=== PATIENT | female | born 1990 | race Caucasian/White ===

== ENCOUNTER 2017-08-20 00:04 | Observation (INO) ==
[2017-08-20] MEDS ORDERED: Naloxone 0.4 MG/ML INJ IVP PRN (05:17)
--- NOTE | 2017-08-20 05:29 | Internal Med History&Physical ---
Date of Encounter: 08/20/17 Time of Encounter: 02:25 Internal Medicine - H&P: HPI Chief complaint: GI bleed Admitted From: Home Plans for Post Hospital Care: Home History of present illness: Ms. Calderon is a 27 year old female Patient was seen by her primary care physician earlier today and had blood work done. Later they called her at her home and told her to go to the emergency room because she had low hemoglobin. When she presented to the emergency room her blood work showed that her hemoglobin was 6.3 hematocrit was 24.7. She had been feeling weak lately and dizzy particularly with standing. She has intense cravings for ice, and enjoys chewing on it. She denies noticing blood in her stool or urine, she has a history of heavy periods but no other signs of bleeding. Further workup showed an iron saturation level of 2, IBC of 528, iron level of 13, ferritin level of 2. Her reticulocyte count was 1.76. End of stool occult blood test was positive. She was given 1 unit of PRBCs, and Protonix. She was transferred to [facility] for further management. Discussion with GI physician was had, and she will be scoped in the morning. She denies nausea, vomiting, fever, diarrhea, constipation, chest pain and abdominal pain. She denies falls and loss of consciousness. Past Med Surg Social Fam HX - Past Medical History Medical history: no medical history Psychiatric history: no psych history - Past Surgical History Surgical History: cholecystectomy, other Additional surgical history: lap surgery for endometriosis, wisdom teeth removed - Social History Smoking Status: Never smoker Alcohol use: none Drug use: none - Family History Mother Living Status: Still Living Hx Family Endocrine Disorder: Yes (graves disease) Internal Medicine - H&P: Meds 3 Allergy/AdvReac Type Severity Reaction Status Date / Time No Known Allergies Allergy Verified 03/15/15 04:30 All Systems PM: A 10-system review of systems was performed and is negative for pertinent findings except as documented above in the HPI. - Constitutional Vitals: Temp Pulse Resp BP Pulse Ox 98.5 F 80 18 121/84 100 08/20/17 03:01 08/20/17 03:01 08/20/17 03:01 08/20/17 03:01 08/20/17 03:01 General appearance: Present: A&O X 3, pleasant, no acute distress - Eye Eye exam: Present: EOMI, normal appearance, conjuntiva pink. Absent: conjunctival injection - Neck Neck exam general surgery: Absent: tenderness - Respiratory Respiratory exam: Present: CTAB. Absent: chest wall tenderness, rales, respiratory distress, wheezes - Cardiovascular Cardiovascular exam: Present: RRR. Absent: diastolic murmur, systolic murmur - GI/Abdominal GI/Abdominal exam: Present: normal bowel sounds. Absent: guarding, hyperactive bowel sounds, hypoactive bowel sounds, tenderness - Extremities Exam Extremities exam: Present: full ROM, warm, radial pulses palpable and symmetrical. Absent: tenderness - Neurological Exam Neurological exam: Present: oriented X3, no focal deficits. Absent: facial droop, speech deficit - Skin Skin exam: Present: dry, normal color, warm - Assessment and plan (1) Iron deficiency anemia Current Visit: Yes Status: Acute Assessment and plan: Patient has what appears to be iron deficiency anemia as her serum iron level is very low at 13, iron binding capacity is elevated at 528, her serum ferritin is low at 2, and her hemoglobin is 6.3 on her CBC. Her percent saturation is also low at 2. She was also found to have a GI bleed via positive occult blood test. Consult GI for likely scope in the morning Patient transfused 1 unit PRBCs, repeat H&H and follow levels Protonix started Start iron supplementation after scope. Qualifiers: Qualified Code(s): D50.9 - Iron deficiency anemia, unspecified (2) Occult GI bleeding Current Visit: Yes Status: Acute Assessment and plan: Positive at [facility] ER. See plan above (3) Weakness Current Visit: Yes Status: Acute Assessment and plan: Secondary to iron deficiency anemia See plan above (4) Pica Current Visit: Yes Status: Acute Assessment and plan: Patient has intense cravings for ice, likes to chew on it. This is most likely a symptom of her iron deficiency See plan above. - Time Spent With Patient Total time spent is greater than 50% in coordination of care (as documented) at patient's floor/unit and/or counseling patient: Greater than 35 minutes
[2017-08-20] MEDS: Pantoprazole 40 MG VIAL IVP SCH ×2 (06:00→18:24)
[2017-08-20 06:20] LABS: Hematocrit 25.5 % (35.3-44.9); Hemoglobin 6.9 g/dL (11.5-15.4); Mean Corpuscular HGB Conc 27.1 g/dL (31.6-35.5); Mean Corpuscular Hemoglobin 15.7 pg (28.0-33.3); Mean Platelet Volume 9.6 fL (9.4-12.4); Platelet Count 326 K/mcL (140-400); Red Cell Distribution Width 24.7 % (11.5-14.5)
[2017-08-20 06:34] LABS: BUN/Creatinine Ratio 16 (6-26); Blood Urea Nitrogen 9 mg/dL (6-20); Calcium 8.8 mg/dL (8.6-10.3); Carbon Dioxide 22 mEq/L (23-29); Chloride 108 mEq/L (98-107); Glucose 97 mg/dL (70-105); Osmolality,Calculated 289 (280-300); Potassium 3.5 mEq/L (3.5-5.1); Sodium 140 mEq/L (136-145); eGFR For African Americans > 60 (> 60); eGFR For Non-African Americans > 60 (> 60)
[2017-08-20] MEDS ORDERED: 0.9 % Sodium Chloride 250 ML ONE (09:11)
--- NOTE | 2017-08-20 10:49 | Gastroenterology Consult Note ---
Date of Encounter: 08/20/17 Time of Encounter: 10:05 - Assessment and plan (1) Iron deficiency anemia Current Visit: Yes Status: Acute Assessment and plan: Hgb 6.9 with MCV 58. At [facility] iron 13, ferritin 2. Continue to monitor CBC and transfuse PRBC as needed. Plan for EGD today to r/o esophagitis, gastritis, duodenitis, PUD, MW tear, or AVM. Keep patient NPO. If EGD negative, consider colonoscopy, possibly as outpatient. Qualifiers: Iron deficiency anemia type: unspecified iron deficiency Qualified Code(s) : D50.9 - Iron deficiency anemia, unspecified (2) Occult GI bleeding Current Visit: Yes Status: Acute Assessment and plan: FOBT was positive at OSH. Plan for EGD today. Keep NPO. (3) Pica Current Visit: Yes Status: Acute Assessment and plan: Secondary to iron deficiency. - Time Spent With Patient Total time spent is greater than 50% in coordination of care (as documented) at patient's floor/unit and/or counseling patient: GI History of Present Illness - Data of Consult Patient: new to practice Consult date: 08/20/17 Requesting Physician: Maris Townsend - Consult Narrative Reason for consult: ANDREW, FOBT + History of present illness: Ms. Calderon is a 27 year old female who was admitted with anemia. She had blood work checked by her PCP yesterday and was told to go to the ED becausea of a low Hgb. When she presented to the ED at [facility], her blood work showed that her Hgb 6.3. She had been feeling weak lately and dizzy particularly with standing. She has intense cravings for ice, and enjoys chewing on it. She denies melena or hematochezia. She has a history of heavy periods but no other signs of bleeding. Further workup showed an iron saturation level of 2, IBC of 528, iron level of 13, ferritin level of 2. Fecal occult blood test was positive. She was given one unit PRBC and Protonix. She was transferred here for further evaluation. On admission here, Hgb 6.9 with MCV 58. She denies fever, chills, chest pain, shortness of breath, abdominal pain, nausea, vomiting, hematemesis. Procedures: NSAIDs: None Anticoagulation: None Past Med Surg Social Fam HX - Past Medical History Medical history: no medical history Psychiatric history: no psych history - Past Surgical History Surgical History: cholecystectomy, other Additional surgical history: lap surgery for endometriosis, wisdom teeth removed - Social History Smoking Status: Never smoker Alcohol use: none Drug use: none - Family History Mother Living Status: Still Living Hx Family Endocrine Disorder: Yes (graves disease) - Gastrointestinal Gastrointestinal: Present: as per HPI - Constitutional Constitutional: as per HPI - EENT Eyes: as per HPI Ears: Present: as per HPI Nose, mouth and throat: Present: as per HPI - Cardiovascular Cardiovascular ROS: Present: as per HPI - Respiratory Respiratory IM: Present: as per HPI - Genitourinary Genitourinary: Absent: change in color, Urinary frequency - Neurological ROS Neurological GI: Present: as per HPI - Hematologic/Lymphatic Hematologic/Lymphatic pediatric: Present: as per HPI - Musculoskeletal Musculoskeletal ROS GI: Present: as per HPI - Integumentary Integumentary GI: Present: as per HPI - Psychiatric ROS Psychiatric GI: Present: as per HPI - Endocrine Endocrine IM: Present: as per HPI - Constitutional Vitals: Temp Pulse Resp BP Pulse Ox 98.1 F 68 18 117/70 98 08/20/17 09:33 08/20/17 09:33 08/20/17 09:33 08/20/17 09:33 08/20/17 06:58 General appearance: Present: cooperative, A&O X 3, no acute distress, answers questions appropriately - Head Head exam: Present: atraumatic, normocephalic - Eye Eye exam: Present: normal appearance, sclera anicteric - ENT ENT exam: Present: mucous membranes dry - Neck Neck exam general surgery: Present: normal inspection, trachea midline - Respiratory Respiratory exam: Present: CTAB. Absent: rales, rhonchi, wheezes - Cardiovascular Cardiovascular exam: Present: RRR, +S1, +S2 - GI/Abdominal GI/Abdominal exam: Present: soft, no peritoneal signs. Absent: distended, firm , guarding, tenderness - Rectal Rectal exam: Present: deferred - Extremities Exam Extremities exam: Present: warm - Neurological Exam Neurological exam: Present: no focal deficits - Psychiatric Psychiatric exam: Present: normal affect, normal mood - Skin Skin exam: Present: dry, intact, normal color, warm Results - Labs CBC & Chem 7: 08/20/17 05:45 08/20/17 05:45 Labs: Last Result Calcium 8.8 mg/dL (8.6-10.3) 08/20/17 05:45 Entire Visit Hgb 6.9 g/dL (11.5-15.4) L 08/20/17 05:45 Hct 25.5 % (35.3-44.9) L 08/20/17 05:45
--- NOTE | 2017-08-20 11:03 | Event Note ---
Date of Encounter: 08/20/17 Time of Encounter: 11:02 called due to concern for GI bleeding; GI on board; call surgery if further care is needed.
--- NOTE | 2017-08-20 11:50 | Internal Med Progress Note ---
Date of Encounter: 08/20/17 Time of Encounter: 10:40 - Assessment and plan (1) DVT prophylaxis Current Visit: Yes Status: Acute Assessment and plan: SCDs ordered, pt is ambulatory. NO pharmacologic intervention due to GIB and anemia. Heparin SQ stopped. (2) Iron deficiency anemia Current Visit: Yes Status: Acute Assessment and plan: Pt is asymptomatic. States that she was unaware of hgb. Reports PICA symptoms, eating ice. She denies any change in stools or miles bleeding per rectum. Denies heavier than normal periods, no dysfunctional uterine bleeding. Reports family history (maternal) history of ANDREW. Chemistry performed at outside hospital. Percent saturation is low at 2%, serum iron is 13, IBC 528, serum ferritin is low at 2, initial hemoglobin was 6.3 on arrival. [facility], hemoglobin 6.9 this morning. Second unit transfusing now. Monitor H and H Iron transfusion EGD today, consider colonoscopy after holiday, likely outpatient. Qualifiers: Iron deficiency anemia type: unspecified iron deficiency Qualified Code(s) : D50.9 - Iron deficiency anemia, unspecified (3) Occult GI bleeding Current Visit: Yes Status: Acute Assessment and plan: Stool occult blood positive [facility]. Plan as above. (4) Pica Current Visit: Yes Status: Acute Assessment and plan: Patient reports that she normally eats ice every day, increased cravings recently. Most likely secondary to ANDREW. Plan as above (5) Weakness Current Visit: Yes Status: Acute Assessment and plan: Likely secondary to ANDREW. Plan as above. - Time Spent With Patient Total time spent is greater than 50% in coordination of care (as documented) at patient's floor/unit and/or counseling patient: less than 15 minutes - Subjective Interval history: Patient was seen and assessed at bedside at 10:40 AM. at bedside. Patient reports that she has been asymptomatic with her anemia. She states that she has not noticed any blood in her stool and has not noticed a change in her stool. She reports that her mother has iron deficiency anemia requiring iron transfusions frequently. She denies headache, nausea, vomiting, abdominal pain, chest pain, shortness of breath. Patient is aware of plan of care and questions were answered. - Constitutional Vitals: Temp Pulse Resp BP Pulse Ox 98.4 F 64 15 109/68 97 08/20/17 10:59 08/20/17 10:59 08/20/17 10:59 08/20/17 10:59 08/20/17 10:59 General appearance: Present: cooperative, A&O X 3, pleasant, no acute distress, answers questions appropriately - Head Head exam: Present: atraumatic, normal inspection, normocephalic - Eye Eye exam: Present: normal appearance, conjuntiva pink, sclera anicteric - Neck Neck exam general surgery: Present: supple, trachea midline. Absent: lymphadenopathy, tenderness - Respiratory Respiratory exam: Present: CTAB. Absent: accessory muscle use, chest wall tenderness, rales, respiratory distress, rhonchi, wheezes - Cardiovascular Cardiovascular exam: Present: RRR, +S1, +S2. Absent: diastolic murmur, gallop, rubs, systolic murmur - GI/Abdominal GI/Abdominal exam: Present: normal bowel sounds, soft. Absent: distended, hepatomegaly, tenderness - Extremities Exam Extremities exam: Present: normal inspection, warm, radial pulses palpable and symmetrical. Absent: calf tenderness, cyanotic, pedal edema, tenderness - Neurological Exam Neurological exam: Present: alert, oriented X3, no focal deficits. Absent: facial droop, speech deficit - Skin Skin exam: Present: dry, intact, normal color, warm. Absent: rash Internal Medicine: Result - Labs CBC & Chem 7: 08/20/17 05:45 08/20/17 05:45 Labs: Short CBC 08/20/17 Range/Units 05:45 WBC 7.5 (4.3-11.1) K/mcL Hgb 6.9 L (11.5-15.4) g/dL Hct 25.5 L (35.3-44.9) % Plt Count 326 (140-400) K/mcL BMP 08/20/17 05:45 Sodium 140 Potassium 3.5 Chloride 108 H Carbon Dioxide 22 L BUN 9 Creatinine 0.55 L Glucose 97 Calcium 8.8 - VTE Documentation of Mechanical Device: Intermittent pneumatic compression device
[2017-08-20] MEDS ORDERED: Lidocaine -MPF 2% 2 ML VIAL ONE (12:34)
[2017-08-20] MEDS ORDERED: *HR* Propofol 200 MG/20 ML VIAL IVP ONE ×2 (12:34→13:02)
--- NOTE | 2017-08-20 13:17 | Anesthesia Evaluation PreOp ---
Date of Encounter: 08/20/17 Time of Encounter: 13:15 - Past History Planned Operation: EGD Cardiac History: Denies any Significant Hx Pulmonary History: Denies Any Significant HX [employer] History: Denies Any Significant HX Other Medical History: Other (anemia) Anesthesia History: No Prior Anesthetic Complications, Past Anesthesia Test: Negative (08/19/2017 from [facility]) Alcohol Use: occasionally Drug use: none Medications and Allergies No Known Home Drugs 08/20/17 [History] 3 Allergy/AdvReac Type Severity Reaction Status Date / Time No Known Allergies Allergy Verified 03/15/15 04:30 - Meds/Allergy Pre-op Review Medications Reviewed: Yes Allergies Reviewed: Yes Beta Blockers on Current Med List: No Anesthesia Results - Labs 08/20/17 05:45 08/20/17 05:45 Anesthesia Exam Vital Signs/O2 Sat, Most Current Temp Pulse Resp BP Pulse Ox 98.2 F 71 18 117/68 97 08/20/17 13:04 08/20/17 13:04 08/20/17 13:04 08/20/17 13:04 08/20/17 13:04 Height: 5'6''/1.68m Weight: 242 lbs/109.8 kg NPO (# of Hours): 8 Pain Scale: 0 Pain Scale Used: Numeric (1 - 10) - HEENT Pupil (Motor): EOMI Mallampati: III Teeth: Normal Oral Opening: Greater than 3 - [employer] LOC: Oriented [employer] Motor: Normal RUE, Normal LUE, Normal RLE, Normal LLE, Normal Face [employer] Sensory: Normal: RUE, LUE, RLE, LLE, Face - Cardiac Rhythm: Regular Murmur: None - Pulmonary Breath Sounds: bilateral Clear Respiratory Effort: Symmetrical Anesthesia Assess/Plan ASA Score: 2 Modified Anjana Scale for Level of Consciousness: Cooperative, oriented, and tranquil Anesthetic Plan: MAC Monitoring Plan: Standard Monitors
[2017-08-20 14:55] LABS: Hemoglobin 8.2 g/dL (11.5-15.4)
[2017-08-21] MEDS: Pantoprazole 40 MG VIAL IVP SCH (06:04)
[2017-08-21 08:19] LABS: Hematocrit 29.9 % (35.3-44.9); Hemoglobin 8.3 g/dL (11.5-15.4)
[2017-08-21] MEDS ORDERED: Iron Sucrose Complex 400 MG in 0.9 % Sodium Chloride 250 ML IVPB ONE (10:11)
--- NOTE | 2017-08-21 10:17 | Discharge Summary ---
- NOTES TO OUTPATIENT PROVIDER Notes to Outpatient Provider: Pt was admitted for GIB and anemia. Initial Hbg 6.3. Pt has been transfused with 2 units PRBCs and also an infusion of Venofer for ANDREW. Pt will be sent home with rx for Ferrous Sulfate 325mg po and will need to be monitored for hgb and hct. EGD completed, unremarkable except for esophagitis and mild inflammation in entire stomach, biopsies collected and pending. Pt will also need outpatient colonoscopy, GI will follow up with pt to schedule. Orders not resulted at time of discharge: Pending orders 08/20/17 14:07 Surgical Pathology [PTH] Routine Date of Encounter: 08/21/17 Time of Encounter: 10:30 - Discharge Diagnosis (1) DVT prophylaxis Priority: Secondary Status: Acute Assessment and Plan: SCDs ordered, pt is ambulatory. NO pharmacologic intervention due to GIB and anemia. (2) Iron deficiency anemia Priority: Secondary Status: Acute Assessment and Plan: Pt is asymptomatic. States that she was unaware of hgb. Reports PICA symptoms, eating ice. She denies any change in stools or miles bleeding per rectum. Denies heavier than normal periods, no dysfunctional uterine bleeding. Reports family history (maternal) history of ANDREW. Venofer 400mg IV prior to discharge, pt will be sent home with Ferrous sulfate po Colonoscopy outpatient after discharged. Monitor H and H in 2 days. Qualifiers: Iron deficiency anemia type: unspecified iron deficiency Qualified Code(s) : D50.9 - Iron deficiency anemia, unspecified (3) Occult GI bleeding Priority: Secondary Status: Acute Assessment and Plan: Stool occult blood positive [facility] hospital. Plan as above. (4) Pica Priority: Secondary Status: Acute Assessment and Plan: Patient reports that she normally eats ice every day, increased cravings recently. Most likely secondary to ANDREW. Should resolve after ANDREW is treated. (5) Weakness Priority: Secondary Status: Resolved (6) Obesity (BMI 30-39.9) Priority: Secondary Status: Chronic Assessment and Plan: Lifestyle modifications. Hospital course: Ms. Calderon is a 27 year old female with no significant medical history presented to the emergency room with low hemoglobin and weakness. Hemoglobin on presentation was 6.3. She has been transfused with 2 units of packed red cells hemoglobin is 8.2. Iron studies revealed low percent saturation and low iron, then no further infusion was given today. Patient will be sent home with prescription for ferrous sulfate 325 mg twice daily. She will need to follow- up with primary care within the next few days. She also has a prescription for a repeat H&H in 3 days with results to primary care. Due to today being the holiday, I was unable to reach primary care to discuss case with them. Patient is stable and appropriate for discharge. Discharge discussed with: patient, family, nurse - Time Spent with Patient Total time spent providing and/or coordinating discharge services: Less than 30 minutes - Discharge Medications Prescriptions: Ferrous Sulfate 325 mg PO BID #60 tablet Omeprazole [PriLOSEC] 20 mg PO DAILY #30 cap Home Medications: Ferrous Sulfate 325 mg PO BID #60 tablet 08/21/17 [Rx] Omeprazole [PriLOSEC] 20 mg PO DAILY #30 cap 08/21/17 [Rx] Allergies/Adverse Reactions: 3 Allergy/AdvReac Type Severity Reaction Status Date / Time No Known Allergies Allergy Verified 03/15/15 04:30 Date of admission: 08/20/17 02:57 Consults: 08/20/17 05:19 Consult to Gastroenterology [CONS] Routine Consulting Provider: [facility] Reason for Consult: Iron def anemia, occult positive stool Call Completed: Yes Discharging clinician: Jenny Yates Anticipated date of discharge: 08/21/17 - Constitutional Vitals: Temp Pulse Resp BP Pulse Ox 97.9 F 64 16 100/64 97 08/21/17 07:07 08/21/17 07:07 08/21/17 07:07 08/21/17 07:07 08/21/17 07:07 General appearance: Present: cooperative, A&O X 3, pleasant, no acute distress, obese, answers questions appropriately - Head Head exam: Present: atraumatic, normal inspection, normocephalic - Eye Eye exam: Present: PERRL, conjuntiva pink, sclera anicteric Pupils: Present: PERRL - Neck Neck exam general surgery: Present: supple, trachea midline. Absent: lymphadenopathy - Respiratory Respiratory exam: Present: CTAB. Absent: accessory muscle use, rales, rhonchi, wheezes - Cardiovascular Cardiovascular exam: Present: RRR, +S1, +S2. Absent: diastolic murmur, gallop, rubs, systolic murmur - GI/Abdominal GI/Abdominal exam: Present: normal bowel sounds, soft. Absent: distended, tenderness - Extremities Exam Extremities exam: Present: normal capillary refill, normal inspection, warm, radial pulses palpable and symmetrical. Absent: calf tenderness, cyanotic, pedal edema, tenderness - Neurological Exam Neurological exam: Present: alert, oriented X3, no focal deficits. Absent: facial droop, speech deficit - Skin Skin exam: Present: dry, intact, normal color, warm. Absent: rash - Patient Status Disposition: Home, Self-Care Condition: Good Functional capacity at discharge: independent ambulation Overall status at discharge: patient is progressing back to baseline - Discharge Instructions Instructions: Iron Deficiency Anemia (DC) Follow Up With: Feroz Rubi MD [Partnered Physician] - (Web request entered. Office will call you with date and time of appt. Thank you) Aldair Moreno CNP [Advanced Practice Nurse] - 08/27/17 1:45 pm Additional Instructions: Take your medications as directed. Follow up with your PCP in the next 5-7 days for a recheck. Have your labs redrawn in 3 days. Return to the ER as needed for any other problems or concerns, or if your symptoms return or worsen. Return to the ER immediately if you begin passing blood through your rectum or vomiting blood, if you become dizzy or lose consciousness. Return to your normal diet and activities as tolerated. - Diet and Activity Activity: increase activity as tolerated Diet: advance to your usual diet - VTE Documentation of Mechanical Device: Intermittent pneumatic compression device
[2017-08-21 10:49] VITALS: BP 108/69
== END 2017-08-21 13:49 | disposition home or self-care (01) ==
LOC: 3ANU
PROVIDERS: ADMIT Internal Medicine Nephrology; ATTEND Internal Medicine Nephrology
PROC: ENDOEBX (2017-08-20 14:00)